=== PATIENT | female | born 1990 | race Hispanic/Latino ===

== ENCOUNTER 2020-10-27 02:04 | Day surgery (SDC) | payer BC ==
[2020-10-27 03:07] VITALS: BMI 36.2
[2020-10-27] MEDS ORDERED: hydrALAZINE 20 MG/ML VIAL SLOW IVP PRN (05:17)
[2020-10-27] MEDS ORDERED: Ondansetron ODT 4 MG TAB SL PRN (07:42)
== END 2020-10-27 09:12 | disposition home health service (06) ==
LOC: CSHLD/OP 02:04
PROVIDERS: ATTEND Obstetrics & Gynecology
DX: O47.1 False labor at or after 37 completed weeks of gestation (principal); O24.410 Gestational diabetes mellitus in pregnancy, diet controlled; Z3A.37 37 weeks gestation of pregnancy; Z91.018 Allergy to other foods
CPT/HCPCS: 99283

== ENCOUNTER 2020-10-28 10:29 | Inpatient (IN) | payer BC ==
[~2020-10-28 10:29] MED LIST: Bupivacaine 0.25% HCL 30 ML VIAL ONE
[2020-10-28] MEDS ORDERED: Misoprostol 200 MCG TAB PR PRN (10:38)
[2020-10-28] MEDS ORDERED: Butorphanol Tartrate 1 MG/ML VIAL SLOW IVP PRN (10:38)
[2020-10-28] MEDS ORDERED: Ondansetron PF 4 MG/2 ML Vial IVP PRN ×3 (10:38→16:37)
[2020-10-28] MEDS ORDERED: Ibuprofen 800 MG TAB PO PRN (10:38)
[2020-10-28] MEDS ORDERED: Promethazine HCl 25 MG/ML VIAL IM PRN ×2 (10:38→12:10)
[2020-10-28] MEDS ORDERED: HYDROcodone/Acetaminophen 5/325 mg Tablet PO PRN ×3 (10:38→16:37)
[2020-10-28] MEDS ORDERED: Lidocaine 1% (PF) 30 ML VIAL SC PRN (10:38)
[2020-10-28] MEDS ORDERED: Acetaminophen 500 MG TAB PO PRN (10:38)
[2020-10-28] MEDS ORDERED: Docusate 100 MG CAP PO PRN (10:38)
[2020-10-28] MEDS ORDERED: Diphenoxylate HCl/Atropine Tablet PO PRN ×2 (10:38)
[2020-10-28] MEDS ORDERED: hydrALAZINE 20 MG/ML VIAL SLOW IVP PRN ×2 (10:38→16:37)
[2020-10-28] MEDS: Lactated Ringer's 1,000 ML IV SCH ×2 (11:25→13:00)
[2020-10-28] MEDS ORDERED: Fentanyl 4 mcg/Bup 0.1% Cadd 100 ML ONE (11:37)
[2020-10-28 11:38] LABS: Hemoglobin 12.4 g/dL (12.0-15.5); Mean Corpuscular HGB CONC 34.3 g/dL (32.0-36.0); Mean Corpuscular Hemoglobin 29.1 pg (27.0-33.0); Mean Corpuscular Volume 84.7 fl (81.6-98.3); Mean Platelet Volume 10.3 fl (7.4-10.4); Platelet Count 176 10x3/uL (150-450); RBC Distribution Width 12.8 % (11.5-14.5); Red Blood Cell (RBC) Count 4.26 10x6/uL (3.90-5.03); White Blood Cell (WBC) Count 7.2 10x3/uL (3.5-10.5)
[2020-10-28 12:09] LABS: Hep B Surf Ag Non-Reactive S/CO (NonReactive)
[2020-10-28 12:10] LABS: Syphilis Antibody Nonreactive (Nonreactive); Syphilis Antibody Index 0.02 S/CO (<1.00 Non-Reactive)
[2020-10-28] MEDS ORDERED: Naloxone HCl 0.4 mg/ml Vial IVP PRN ×2 (12:10)
[2020-10-28] MEDS ORDERED: diphenhydrAMINE 50 MG/ML VIAL IVP PRN (12:10)
[2020-10-28] MEDS ORDERED: Acetaminophen 325 MG TAB PO PRN (12:10)
[2020-10-28] MEDS ORDERED: Lactated Ringer's 500 ML IV PRN (12:10)
[2020-10-28] MEDS ORDERED: Eucerin (Mineral Oil/Petrolatum,White) 30 gm Jar TOP PRN (12:10)
[2020-10-28] MEDS ORDERED: ePHEDrine 50 MG/ML VIAL SLOW IVP PRN (12:10)
[2020-10-28] MEDS ORDERED: Communication Order-Pharmacy FS SCH (12:15)
[2020-10-28] MEDS ORDERED: Fentanyl 4 mcg/Bupivacaine 0.1% Cassette 100 ML EPIDURAL SCH (12:15)
[2020-10-28 12:24] LABS: HBSAg Index 0.15 S/CO (0-0.99)
[2020-10-28 12:35] VITALS: BMI 36.2
[2020-10-28] MEDS ORDERED: Terbutaline Sulfate 1 MG/ML VIAL ONE (15:48)
[2020-10-28] MEDS: NS w/ Oxytocin 30 units 500 ML IV PRN ×2 (16:19→17:40)
[2020-10-28] MEDS ORDERED: Misoprostol 200 MCG TAB VAG PRN (16:37)
[2020-10-28] MEDS ORDERED: Lanolin Ointment 7 GM TUBE TOP PRN (16:37)
[2020-10-28] MEDS ORDERED: Bisacodyl 10 MG SUPP PR PRN (16:37)
[2020-10-28] MEDS ORDERED: Adacel (T-DAP) 0.5 ML SYRINGE IM ONE (16:37)
[2020-10-28] MEDS ORDERED: Zolpidem Tartrate 5 MG TAB PO PRN (16:37)
[2020-10-28] MEDS ORDERED: Benzocaine-Menthol 82.5 ML CAN TOP PRN (16:37)
[2020-10-28] MEDS ORDERED: Milk Of Magnesia 30 ML UDCUP PO PRN (16:37)
[2020-10-28] MEDS ORDERED: Preparation H Ointment 28 GM TUBE PR PRN (16:37)
[2020-10-28] MEDS ORDERED: diphenhydrAMINE 25 MG CAP PO PRN (16:37)
[2020-10-28] MEDS ORDERED: NS / Oxytocin 40 units/1000ml 1,000 ML IV SCH (16:45)
[2020-10-28] MEDS ORDERED: Terbutaline Sulfate 1 MG/ML VIAL SC SCH (18:15)
[2020-10-28] MEDS: HYDROcodone/Acetaminophen 5/325 mg Tablet PO PRN (19:47)
[2020-10-28] MEDS: Ferrous Sulfate 325 MG TAB PO SCH (20:23)
[2020-10-28] MEDS: Ibuprofen 800 MG TAB PO SCH (21:18)
[2020-10-28] MEDS: Docusate Calcium (SURFAK) 240 MG CAP PO SCH (21:18)
[2020-10-29] MEDS: Ibuprofen 800 MG TAB PO SCH ×2 (06:06→13:29)
[2020-10-29 06:51] LABS: SARS-CoV-2 PCR by NAA Not Detected (NotDetected)
[2020-10-29 07:31] LABS: Hemoglobin 10.7 g/dL (12.0-15.5); Mean Corpuscular HGB CONC 34.2 g/dL (32.0-36.0); Mean Corpuscular Hemoglobin 28.9 pg (27.0-33.0); Mean Corpuscular Volume 84.6 fl (81.6-98.3); Mean Platelet Volume 10.1 fl (7.4-10.4); Platelet Count 155 10x3/uL (150-450); RBC Distribution Width 12.7 % (11.5-14.5); White Blood Cell (WBC) Count 9.3 10x3/uL (3.5-10.5)
[2020-10-29] MEDS: Docusate Calcium (SURFAK) 240 MG CAP PO SCH (07:55)
[2020-10-29] MEDS: Ferrous Sulfate 325 MG TAB PO SCH (07:56)
[2020-10-29] MEDS ORDERED: Prenatal Vitamin 1 TAB PO SCH (09:00)
[2020-10-29] MEDS: HYDROcodone/Acetaminophen 5/325 mg Tablet PO PRN (10:33)
[2020-10-29 17:05] VITALS: BP 127/78; TEMP 98.8
== END 2020-10-29 18:15 | disposition home or self-care (01) | DRG 807 ==
LOC: CSHLD 10:29 → CSHPP 20:05
PROVIDERS: ADMIT Obstetrics & Gynecology; ATTEND Obstetrics & Gynecology
PROC: 10E0XZZ Delivery of Products of Conception, External Approach (ICD-10-PCS; principal; 2020-10-28)
PROC: 0HQ9XZZ Repair Perineum Skin, External Approach (ICD-10-PCS; 2020-10-28)
PROC: 10907ZC Drainage of Amniotic Fluid, Therapeutic from Products of Conception, Via Natural or Artificial Opening (ICD-10-PCS; 2020-10-28)
DX: O24.429 Gestational diabetes mellitus in childbirth, unspecified control (principal); Z37.0 Single live birth; Z3A.37 37 weeks gestation of pregnancy; O99.344 Other mental disorders complicating childbirth; F41.9 Anxiety disorder, unspecified; O99.52 Diseases of the respiratory system complicating childbirth; J45.909 Unspecified asthma, uncomplicated; Z20.822 Contact with and (suspected) exposure to COVID-19; O76 Abnormality in fetal heart rate and rhythm complicating labor and delivery; O70.0 First degree perineal laceration during delivery
CPT/HCPCS: 36415; 36416; 51702; 85027; 86780; 86850; 86900; 86901; 87340; 87635; J2590; J3105; S0020; U0003; U0005

== ENCOUNTER 2022-11-06 15:11 | Emergency (ER) | payer BC ==
[2022-11-06 16:32] LABS: Bilirubin Neg (Negative); Blood, Urine Negative (Negative); Clarity Slightly Cloudy (Clear); Glucose, Urine (Dipstick) Normal (Negative); Ketone, Urine 5 mg/dL (Negative); Leukocyte 25 (Negative); Nitrite Negative (Negative); Protein, Urine (Dipstick) Negative (Neg-Trace); Urobilinogen Normal mg/dL (Less than 2)
[2022-11-06 16:46] LABS: Anion Gap 15 mmol/L (10-20); BUN (Urea Nitrogen) 7 mg/dL (7.0-18.7); Calc. Creatinine Clearance 0 mL/min (70-130); Calcium 9.4 mg/dL (7.8-10.44); Carbon Dioxide 22 mmol/L (22-29); Chloride 104 mmol/L (98-107); Estimated GFR 122; Glucose 85 mg/dL (70-105); Sodium 137 mmol/L (136-145)
[2022-11-06 16:46] LABS: RBC/HPF 0-3 HPF (0-3)
[2022-11-06 16:47] LABS: Bacteria/HPF 1+ HPF (None Seen); Squamous Epithelial 0-3 HPF (0-3)
== END 2022-11-06 17:18 | disposition home or self-care (01) ==
LOC: CSHERS 15:11 → CSHLD/OP 15:11 → EDSTATUS 15:24 → CSHERS 17:18
DX: O23.42 Unspecified infection of urinary tract in pregnancy, second trimester (principal); O99.891 Other specified diseases and conditions complicating pregnancy; R00.2 Palpitations; O24.419 Gestational diabetes mellitus in pregnancy, unspecified control; Z3A.23 23 weeks gestation of pregnancy
CPT/HCPCS: 36415; 80048; 81003; 81015; 93005